=== PATIENT | male | born 1955 | race Caucasian/White ===

== ENCOUNTER 2018-06-25 11:43 | Day surgery (SDC) | payer OTHER ==
[~2018-06-25] VITALS: Ht 160 cm; Wt 67.6 kg
[2018-06-25] MEDS ORDERED: ASPIRIN (13:06)
[2018-06-25] MEDS ORDERED: LISINOPRIL (13:06)
[2018-06-25] MEDS ORDERED: ATORVASTATIN (13:06)
[2018-06-25] MEDS ORDERED: OMEPRAZOLE (13:06)
[2018-06-25] MEDS ORDERED: FLOMAX (13:06)
[2018-06-25 13:07] VITALS: Ht 160 cm; Wt 67.6 kg
[2018-06-25 13:43] VITALS: BP 151/76; PULSE 56; RESP 18
--- NOTE | 2018-06-25 14:17 | PREAC ---
Date/Time of Note Date/Time of Note DATE: 06/25/18 TIME: 14:16 Anesthesia Eval and Record Evaluation Time Pre-Procedure Interview DATE: 06/25/18 TIME: 14:16 Age 62 Sex male NPO: 8 hrs Preoperative diagnosis SCREENING Planned procedure COLONOSCOPY Past Medical History Past Medical History: Includes Cardio: HTN, Dyslipidemia Surgery & Anesthesia Issues No known issue Meds Anticoagulation: No Beta Kelli within 24 hr: No Reason Beta Kelli not given: Pt. not on B-Kelli Reported Medications [Flomax] No Conflict Check 06/25/18 [Omeprazole] No Conflict Check 06/25/18 [Aspirin] No Conflict Check 06/25/18 [Atorvastatin] No Conflict Check 06/25/18 [Lisinopril] No Conflict Check 06/25/18 Meds reviewed: Yes Allergies Coded Allergies: No Known Allergy (Unverified , 06/25/18) Allergies Reviewed: Yes Labs/Studies Labs Reviewed: Reviewed by anesthesiologist test: N/A Pre-procedure Exam Last vitals Vital Signs Date Temp Pulse Resp B/P (MAP) Pulse Ox O2 O2 Flow FiO2 Time Delivery Rate 06/25/18 98.0 56 18 151/76 100 Room Air 13:43 (101) Airway: Adequate mouth opening, Adequate thyromental dist Mallampati: Mallampati I Teeth: Normal Lung: Normal Heart: Normal ASA Physical Status ASA physical status: 2 Emergency: None Planned Anesthetic General/MAC: MAC Planned Pain Management Parenteral pain med Pre-operative Attestations Prior to commencing anesthesia and surgery, the patient was re-evaluated, there was verification of: *The patient's identity *The results of appropriate recent lab work and preoperative vital signs *The above evaluation not changing prior to induction *Anesthetic plan, risk benefits, alternative and complications discussed with patient/family; questions answered; patient/family understands, accepts and wishes to proceed. GWEN ROWLAND June 25, 2018 14:17
[2018-06-25] MEDS ORDERED: PROPOFOL 60 ML ONE (14:19)
[2018-06-25] MEDS ORDERED: LIDOCAINE 2% (SDV) 5 ML INJ ONE (14:19)
[2018-06-25] MEDS ORDERED: LABETALOL HCL 20MG INJ IV PRN (14:30)
[2018-06-25] MEDS ORDERED: ONDANSETRON 4 MG INJ IV PRN (14:30)
[2018-06-25] MEDS ORDERED: EPHEDrine 25 MG/5 ML SYG IV PRN (14:30)
[2018-06-25] MEDS ORDERED: FENTAnyl 50 MCG/ML VIAL IV PRN (14:30)
[2018-06-25] MEDS ORDERED: hydrALAzine 20 MG INJ IV PRN (14:30)
[2018-06-25 15:06] VITALS: BP 131/85; PULSE 56; RESP 20
--- NOTE | 2018-06-25 17:04 | PAC ---
Date/Time of Note Date/Time of Note DATE: 06/25/18 TIME: 17:03 Post-Anesthesia Notes Post-Anesthesia Note Last documented vital signs Vital Signs Date Temp Pulse Resp B/P (MAP) Pulse Ox O2 O2 Flow FiO2 Time Delivery Rate 06/25/18 98 56 20 131/85 98 Room Air 1600 (100) 06/25/18 98.0 13:43 Activity: WNL Respiratory function: WNL Cardiovascular function: WNL Mental status: Baseline Pain reasonably controlled: Yes Hydration appropriate: Yes Nausea/Vomiting absent: Yes GWEN ROWLAND June 25, 2018 17:04
== END 2018-06-25 16:02 | disposition home or self-care (01) ==
LOC: GIL 11:43
PROVIDERS: ATTEND Internal Medicine Gastroenterology
DX: Z12.11 Encounter for screening for malignant neoplasm of colon (principal); K57.30 Diverticulosis of large intestine without perforation or abscess without bleeding; K64.8 Other hemorrhoids; I10 Essential (primary) hypertension